=== PATIENT | female | born 1975 | race African-American/Black ===

== ENCOUNTER 2017-09-08 20:13 | Emergency (ER) | payer MEDICAID, OTHER ==
[~2017-09-08] VITALS: Ht 175.3 cm; Wt 113.0 kg
[2017-09-08 20:17] VITALS: BP 200/110
== END 2017-09-08 23:15 | disposition left against medical advice (07) ==
LOC: ER 20:57
DX: R10.13 Epigastric pain (principal); R31.9 Hematuria, unspecified; I11.0 Hypertensive heart disease with heart failure; I50.9 Heart failure, unspecified; Z98.890 Other specified postprocedural states
CPT/HCPCS: 99283; Z7610

== ENCOUNTER 2020-09-16 18:20 | Observation (INO) | payer OTHER ==
[~2020-09-16] VITALS: Ht 175.3 cm; Wt 145.6 kg
[2020-09-16] MEDS ORDERED: LABETALOL HCL 100MG TABLET PO SCH (20:00)
[2020-09-16 20:21] LABS: BASOPHILS % 0.4 % (0.0-2.0); EOSINOPHILS % 1.2 % (0.0-5.0); HEMATOCRIT. 38.7 % (36.0-48.0); HEMOGLOBIN. 13.4 g/dL (12.0-16.0); LYMPHOCYTES % 16.1 % (20.0-50.0); MEAN CORPUSCULAR HEMOGLOBIN 30.9 pg (28.0-32.0); MEAN CORPUSCULAR VOLUME 89.2 fL (81.0-99.0); MEAN PLATELET VOLUME 10.1 fl (7.4-10.4); MONOCYTES % 7.2 % (2.0-8.0); NEUTROPHILS % 75.1 % (40.0-76.0); PLATELET 165 x1000/uL (130-400); RED BLOOD CELL COUNT 4.34 mill/uL (4.2-5.4); RED CELL DISTRIBUTION WIDTH 14.7 % (11.6-14.6)
[2020-09-16 20:31] LABS: CLARITY URINE CLEAR (CLEAR); COLOR URINE YELLOW (YELLOW); KETONES URINE NEGATIVE (NEGATIVE); LEUKOCYTE ESTERASE URINE NEGATIVE (NEGATIVE); NITRITE URINE NEGATIVE (NEGATIVE); OCCULT BLOOD URINE NEGATIVE (NEGATIVE); PH URINE 6.5 (4.5-8.0); PROTEIN URINE TRACE (NEGATIVE); SPECIFIC GRAVITY URINE 1.026 (1.005-1.030)
[2020-09-16 20:33] LABS: CHLORIDE 107 mEq/L (98-107)
[2020-09-16 20:36] LABS: D-DIMER 1.67 mg/L FEU (<0.50); PARTIAL THROMBOPLASTIN TIME 28.9 sec (23.4-31.0); PROTHROMBIN TIME 10.3 sec (9.6-11.0)
[2020-09-16] MEDS ORDERED: LABE100T5 MT (22:07)
[2020-09-16] MEDS ORDERED: ASPI-1497 MT (22:07)
[2020-09-16] MEDS ORDERED: FOLI-43 MT (22:08)
[2020-09-16] MEDS ORDERED: METO-293 PO (22:09)
[2020-09-16] MEDS ORDERED: PREN-176 MT (22:10)
[2020-09-16] MEDS: BETAMETHASONE ACET/BETAMET 30 MG/5 ML VIAL IM NR ×2 (22:24→22:42)
== END 2020-09-16 22:40 | disposition home or self-care (01) ==
LOC: 8 EST LDRP 18:20
PROVIDERS: ADMIT Obstetrics & Gynecology; ATTEND Obstetrics & Gynecology
DX: O09.523 Supervision of elderly multigravida, third trimester (principal); Z3A.36 36 weeks gestation of pregnancy
CPT/HCPCS: 36415; 59025; 80053; 81003; 84550; 85025; 85379; 85384; 85610; 85730; 96372; G0378; J0702

== ENCOUNTER 2020-09-17 22:07 | Observation (INO) | payer OTHER ==
[~2020-09-17] VITALS: Ht 175.3 cm; Wt 144.7 kg
[~2020-09-17 22:07] MED LIST: ASPI-1497 MT; FOLI-43 MT; LABE100T5 MT; METO-293 PO; PREN-176 MT
[2020-09-17] MEDS ORDERED: BETAMETHASONE ACET/BETAMET 30 MG/5 ML VIAL IM NR (22:30)
== END 2020-09-17 23:10 | disposition home or self-care (01) ==
LOC: 8 EST LDRP 22:07
PROVIDERS: ADMIT Obstetrics & Gynecology; ATTEND Obstetrics & Gynecology
DX: O09.523 Supervision of elderly multigravida, third trimester (principal); O36.0130 Maternal care for anti-D [Rh] antibodies, third trimester, not applicable or unspecified; Z3A.36 36 weeks gestation of pregnancy
CPT/HCPCS: 96372; G0378; J0702

== ENCOUNTER 2020-09-21 05:19 | Inpatient (IN) | payer OTHER ==
[~2020-09-21] VITALS: Ht 176.5 cm; Wt 144.7 kg
[2020-09-21] MEDS ORDERED: CARBOPROST TROMETHAMINE 250 MCG/ML AMPUL IM PRN (06:15)
[2020-09-21] MEDS ORDERED: METHYLERGONOVINE MALEATE 0.2 MG/ML IM PRN (06:15)
[2020-09-21] MEDS ORDERED: DEXT 5%/LACTATED RINGERS 1,000 ML IV SCH (06:15)
[2020-09-21 06:41] LABS: BASOPHILS % 0.4 % (0.0-2.0); EOSINOPHILS % 0.8 % (0.0-5.0); HEMATOCRIT. 38.1 % (36.0-48.0); HEMOGLOBIN. 13.1 g/dL (12.0-16.0); MEAN CORPUSCULAR VOLUME 90.2 fL (81.0-99.0); MEAN PLATELET VOLUME 9.2 fl (7.4-10.4); MONOCYTES % 7.1 % (2.0-8.0); NEUTROPHILS % 71.7 % (40.0-76.0); PLATELET 177 x1000/uL (130-400); RED BLOOD CELL COUNT 4.22 mill/uL (4.2-5.4); RED CELL DISTRIBUTION WIDTH 14.8 % (11.6-14.6)
[2020-09-21 06:44] LABS: CLARITY URINE CLOUDY (CLEAR); COLOR URINE YELLOW (YELLOW); KETONES URINE NEGATIVE (NEGATIVE); LEUKOCYTE ESTERASE URINE 1+ (NEGATIVE); NITRITE URINE NEGATIVE (NEGATIVE); OCCULT BLOOD URINE NEGATIVE (NEGATIVE); PROTEIN URINE NEGATIVE (NEGATIVE); SPECIFIC GRAVITY URINE 1.021 (1.005-1.030)
[2020-09-21 06:52] LABS: PARTIAL THROMBOPLASTIN TIME 26.1 sec (23.4-31.0); PROTHROMBIN TIME 10.4 sec (9.6-11.0)
[2020-09-21] MEDS: LACTATED RINGERS 1,000 ML IV SCH ×2 (06:53→06:55)
[2020-09-21 07:08] LABS: *AMPHETAMINES SCREEN URINE NEGATIVE (NEGATIVE); *BARBITURATES SCREEN URINE NEGATIVE (NEGATIVE); *BENZODIAZEPINES SCREEN URINE NEGATIVE (NEGATIVE); *COCAINE SCREEN URINE NEGATIVE (NEGATIVE); CANNABINOID URINE SCREEN NEGATIVE (NEGATIVE); METHADONE URINE SCREEN NEGATIVE (NEGATIVE); OPIATES URINE SCREEN NEGATIVE (NEGATIVE); PHENCYCLIDINE URINE SCREEN NEGATIVE (NEGATIVE)
[2020-09-21] MEDS ORDERED: CITRIC ACID/SODIUM CITRATE SOLN 30ML UDC PO NR (07:15)
[2020-09-21] MEDS ORDERED: OXYTOCIN 10 UNITS/ML 1ML ONE (07:16)
[2020-09-21] MEDS ORDERED: GLYCOPYRROLATE 0.2 MG/ML 2ML VIAL ONE (07:16)
[2020-09-21] MEDS ORDERED: EPHEDRINE SULFATE 50MG/ML VIAL ONE (07:16)
[2020-09-21] MEDS ORDERED: FENTANYL CITRATE/PF 50MCG/ML 2ML VIAL ONE (07:16)
[2020-09-21] MEDS ORDERED: ONDANSETRON HCL 4MG/2ML INJ ONE (07:16)
[2020-09-21] MEDS ORDERED: PHENYLEPHRINE HCL 10 MG/ML 1ML (IV VIAL) IV ONE (07:16)
[2020-09-21] MEDS ORDERED: MORPHINE SULFATE/PF 1MG/ML 10ML AMP ONE (07:16)
[2020-09-21] MEDS ORDERED: CEFAZOLIN SODIUM 1000MG/VIAL ONE ×2 (07:16→08:07)
[2020-09-21] MEDS ORDERED: DIPHENHYDRAMINE 25MG CAPSULE PO PRN (07:30)
[2020-09-21] MEDS ORDERED: BISACODYL 10MG SUPP PR PRN (07:30)
[2020-09-21] MEDS ORDERED: ONDANSETRON HCL 4MG/2ML INJ IV PRN (07:30)
[2020-09-21] MEDS ORDERED: RHO(D) IMMUNE GLOBULIN 300 MCG/SYR IM PRN (07:30)
[2020-09-21] MEDS ORDERED: LANOLIN OINT 7GM TUBE TOP PRN (07:30)
[2020-09-21] MEDS ORDERED: DEXT 5%/LR + PITOCIN 20UNITS/L 1,000 ML IV SCH (07:30)
[2020-09-21] MEDS ORDERED: HEMORRHOIDAL SUPP PR PRN (07:30)
[2020-09-21 07:36] LABS: HEPATITIS B SURFACE ANTIGEN NEGATIVE
[2020-09-21 07:58] LABS: CHLORIDE 106 mEq/L (98-107)
[2020-09-21] MEDS ORDERED: KETOROLAC 60MG/2ML VIAL IM ONE (08:15)
[2020-09-21] MEDS ORDERED: DIPHENHYDRAMINE 50MG/ML VIAL ONE (08:15)
[2020-09-21] MEDS ORDERED: DIPHENHYDRAMINE 50MG/ML VIAL IV PRN ×2 (09:15→20:00)
[2020-09-21] MEDS ORDERED: NALOXONE HCL 0.4 MG/ML 1ML VIAL IV PRN (09:15)
[2020-09-21] MEDS ORDERED: BUTORPHANOL TARTRATE 2 MG/ML VIAL IV PRN (09:15)
[2020-09-21 12:15] VITALS: BP 140/86
[2020-09-21] MEDS ORDERED: HYDROCODONE/ACETAMINOPHEN 5/325MG TABLET PO SCH (12:30)
[2020-09-21 13:30] VITALS: BP 123/68
[2020-09-21 15:10] VITALS: BP 153/78
[2020-09-21] MEDS: KETOROLAC 30MG/ML VIAL IV SCH ×2 (15:13→21:23)
[2020-09-21] MEDS: LABETALOL HCL 100MG TABLET PO SCH ×2 (15:13→21:24)
[2020-09-21 19:30] VITALS: BP 123/85
[2020-09-21] MEDS: MAGNESIUM/ALUMINUM HYDROXIDE/SIMETHICONE 30ML UDC PO SCH (21:21)
[2020-09-21] MEDS: DOCUSATE SODIUM 100MG CAPSULE PO SCH (21:22)
[2020-09-21] MEDS: SIMETHICONE 80MG TABLET CHEW PO SCH (21:22)
[2020-09-22] MEDS: KETOROLAC 30MG/ML VIAL IV SCH (03:28)
[2020-09-22 04:00] VITALS: BP 135/80
[2020-09-22] MEDS ORDERED: KETOROLAC 30MG/ML VIAL IV SCH (04:00)
[2020-09-22 06:37] LABS: BASOPHILS % 0.9 % (0.0-2.0); EOSINOPHILS % 0.9 % (0.0-5.0); HEMATOCRIT. 36.9 % (36.0-48.0); HEMOGLOBIN. 12.4 g/dL (12.0-16.0); LYMPHOCYTES % 12.7 % (20.0-50.0); MEAN CORPUSCULAR HEMOGLOBIN 30.9 pg (28.0-32.0); MEAN CORPUSCULAR VOLUME 91.8 fL (81.0-99.0); MEAN PLATELET VOLUME 9.9 fl (7.4-10.4); MONOCYTES % 6.6 % (2.0-8.0); NEUTROPHILS % 78.9 % (40.0-76.0); PLATELET 173 x1000/uL (130-400); RED BLOOD CELL COUNT 4.02 mill/uL (4.2-5.4); RED CELL DISTRIBUTION WIDTH 15.1 % (11.6-14.6)
[2020-09-22 08:30] VITALS: BP 152/84
[2020-09-22] MEDS: SIMETHICONE 80MG TABLET CHEW PO SCH ×4 (09:33→20:52)
[2020-09-22] MEDS: PRENATAL VIT/FE FUMARATE/FA TABLET PO SCH (09:33)
[2020-09-22] MEDS: MAGNESIUM/ALUMINUM HYDROXIDE/SIMETHICONE 30ML UDC PO SCH ×4 (09:33→20:52)
[2020-09-22] MEDS: FERROUS SULFATE 325MG TABLET PO SCH ×3 (09:33→17:37)
[2020-09-22] MEDS: LABETALOL HCL 100MG TABLET PO SCH ×2 (09:34→20:53)
[2020-09-22] MEDS: IBUPROFEN 800MG TABLET PO SCH ×3 (09:42→21:50)
[2020-09-22] MEDS ORDERED: DIPHENHYDRAMINE 25MG CAPSULE PO PRN (10:45)
[2020-09-22 15:45] VITALS: BP 141/74
[2020-09-22 20:30] VITALS: BP 133/68
[2020-09-22] MEDS: DOCUSATE SODIUM 100MG CAPSULE PO SCH (20:52)
[2020-09-23 04:40] VITALS: BP 145/79
[2020-09-23] MEDS: MAGNESIUM/ALUMINUM HYDROXIDE/SIMETHICONE 30ML UDC PO SCH (07:30)
[2020-09-23 07:52] VITALS: BP 127/85
[2020-09-23] MEDS: SIMETHICONE 80MG TABLET CHEW PO SCH (08:00)
[2020-09-23] MEDS: FERROUS SULFATE 325MG TABLET PO SCH (08:49)
[2020-09-23] MEDS: PRENATAL VIT/FE FUMARATE/FA TABLET PO SCH (08:49)
[2020-09-23] MEDS: IBUPROFEN 800MG TABLET PO SCH (08:49)
[2020-09-23] MEDS: LABETALOL HCL 100MG TABLET PO SCH (08:49)
== END 2020-09-23 12:15 | disposition home or self-care (01) | DRG 540 ==
LOC: 8 EST LDRP 05:19 → 8EST 11:43
PROVIDERS: ADMIT Obstetrics & Gynecology; ATTEND Obstetrics & Gynecology
PROC: 10D00Z1 Extraction of Products of Conception, Low, Open Approach (ICD-10-PCS; principal; 2020-09-21)
PROC: 0UH90HZ Insertion of Contraceptive Device into Uterus, Open Approach (ICD-10-PCS; 2020-09-21)
DX: O11.4 Pre-existing hypertension with pre-eclampsia, complicating childbirth (principal); O34.211 Maternal care for low transverse scar from previous cesarean delivery; O99.214 Obesity complicating childbirth; E66.01 Morbid (severe) obesity due to excess calories; Z3A.38 38 weeks gestation of pregnancy; Z37.0 Single live birth; Z79.82 Long term (current) use of aspirin; Z79.899 Other long term (current) drug therapy
CPT/HCPCS: 36415; 80053; 80305; 81003; 84550; 85025; 85384; 86592; 86703; 86762; 86850; 86900; 86920; 87340; 88307; J0690; J1200; J1885; J2274; J2370; J2405; J2590; J3010; J3490; Q0163; A4315